=== PATIENT | male | born 1985 | race Caucasian/White ===

== ENCOUNTER 2016-03-21 07:10 | Outpatient (CLI) | payer BC ==
[2013-11-29 17:37] VITALS: BP 131/116
== END 2016-03-21 07:15 | disposition home or self-care (01) ==
LOC: LAB 07:10
PROVIDERS: ATTEND Nurse Practitioner Family
DX: R42 Dizziness and giddiness (principal); R53.83 Other fatigue
CPT/HCPCS: 82947; 82950; 82951; 82952

== ENCOUNTER 2016-08-03 14:37 | Outpatient (CLI) | payer BC ==
[2013-11-29 17:37] VITALS: BP 131/116
--- NOTE | 2016-08-03 15:48 | Diagnostic Imaging Report ---
JOSE ALBERTO JAVIER (CREW MESS ATTENDANT) - OP [facility] [id number] [id number] Report Submission Date: Aug 03, 2016 2:59:01 PM CDT Patient Study Name: YANA ARCHER Date: Aug 03, 2016 2:39:12 PM CDT Modality Type: CR Gender: M Description: SPINE : 83 Institution: [facility] Physician: JOSE ALBERTO JAVIER (CREW MESS ATTENDANT) - OP Examination: Plain film lumbar spine History: Back discomfort Findings: 3 views of the lumbar spine demonstrate normal height. No anterior compression. No soft tissue abnormalities. Impression: No compression deformity. Electronically signed on Aug 03, 2016 2:59:01 PM CDT by: Kofi DEJESUS
== END 2016-08-03 14:40 ==
LOC: RAD 14:37
PROVIDERS: ATTEND Nurse Practitioner Family
DX: M54.5 Low back pain (principal)
CPT/HCPCS: 72100